=== PATIENT | male | born 1970 | race Caucasian/White ===

== ENCOUNTER 2023-03-20 14:18 | Emergency (ER) | payer OTHER ==
[~2023-03-20] VITALS: Ht 172.7 cm; Wt 59.1 kg
--- NOTE | 2023-03-20 15:13 | NUR ---
AIRWAY IS PATENT. RESPIRATIONS APPEAR EVEN AND UNLABORED. RADIAL PULSE IS 72.
[2023-03-20 15:17] VITALS: BP 118/80; PULSE 72; RESP 17; TEMP 97.5; O2SAT 98
== END 2023-03-20 22:48 | disposition home or self-care (01) ==
LOC: ER 14:19
DX: Z48.00 Encounter for change or removal of nonsurgical wound dressing (principal)
CPT/HCPCS: 99281

== ENCOUNTER 2023-10-20 11:45 | Emergency (ER) | payer BC, OTHER ==
[~2023-10-20] VITALS: Ht 172.7 cm; Wt 55.0 kg
[2023-10-20 12:14] VITALS: TEMP 97.8
[2023-10-20] MEDS: dexamethasone sod phosphate 10mg/ml inj IM STA (13:12)
[2023-10-20] MEDS: ketorolac trometh. 30mg/ml inj. IM ONE (13:14)
[2023-10-20] MEDS ORDERED: HYDR-3965 PO (13:19)
[2023-10-20] MEDS ORDERED: IBUP-1985 PO (13:19)
[2023-10-20 13:33] VITALS: BP 110/71; PULSE 63; RESP 16; O2SAT 99
== END 2023-10-20 13:38 | disposition home or self-care (01) ==
LOC: ER 11:45
DX: M54.50 Low back pain, unspecified (principal)
CPT/HCPCS: 72100; 96372; 99284; J1100; J1885

== ENCOUNTER 2024-03-31 15:32 | Outpatient (CLI) | payer BC ==
[~2024-03-31 15:32] MED LIST: IBUP-1985 PO
== END 2024-03-31 23:59 | disposition home or self-care (01) ==
LOC: MRI 15:32
PROVIDERS: ATTEND Nurse Practitioner Family
DX: M51.27 Other intervertebral disc displacement, lumbosacral region (principal); M48.07 Spinal stenosis, lumbosacral region; M47.817 Spondylosis without myelopathy or radiculopathy, lumbosacral region; M62.81 Muscle weakness (generalized)
CPT/HCPCS: 72148

== ENCOUNTER 2024-06-23 11:38 | Emergency (ER) | payer BC ==
[~2024-06-23] VITALS: Ht 172.7 cm; Wt 89.0 kg
[2024-06-23] MEDS ORDERED: HYDR-3965 PO (13:27)
[2024-06-23 13:33] VITALS: BP 128/82; PULSE 98; RESP 16; TEMP 98; O2SAT 97
== END 2024-06-23 13:34 | disposition home or self-care (01) ==
LOC: ER 11:39
DX: S90.32XA Contusion of left foot, initial encounter (principal); S90.31XA Contusion of right foot, initial encounter; X58.XXXA Exposure to other specified factors, initial encounter; Y93.23 Activity, snow (alpine) (downhill) skiing, snowboarding, sledding, tobogganing and snow tubing; Y92.89 Other specified places as the place of occurrence of the external cause; Y99.8 Other external cause status
CPT/HCPCS: 73630; 99283

== ENCOUNTER 2024-07-01 05:27 | Inpatient (IN) | payer BC ==
[~2024-07-01] VITALS: Ht 172.7 cm; Wt 53.6 kg
[~2024-07-01 05:27] MED LIST changes: +HYDR-3965 PO
[2024-07-01] MEDS ORDERED: magnesium sulf-water 2g/50mL 50 ML IV PRN (10:20)
[2024-07-01] MEDS ORDERED: acetaminophen 325mg tablet PO PRN ×2 (10:20)
[2024-07-01] MEDS ORDERED: potassium Cl 20 mEq SR tablet PO PRN ×2 (10:20)
[2024-07-01] MEDS ORDERED: magnesium sulf-water 4G/100mL 100 ML IV PRN (10:20)
[2024-07-01] MEDS ORDERED: HYDROcodone/acetaminophen 5mg/325mg tablet PO PRN (10:20)
[2024-07-01] MEDS ORDERED: potassium Cl 40MEQ/1/2NS 520ml 520 ML IV PRN (10:20)
[2024-07-01] MEDS ORDERED: magnesium Cl slow-release 64mg tablet PO PRN (10:20)
[2024-07-01] MEDS ORDERED: ondansetron/PF 4mg/2ml inj IV PRN (10:20)
[2024-07-01] MEDS ORDERED: HYDROcodone/acetaminophen 10/325mg tab PO PRN (10:20)
[2024-07-01] MEDS ORDERED: morphine 2 MG/ML inj. syringe IV PRN ×2 (10:20)
[2024-07-01 11:48] LABS: BASOPHILS % (AUTO) 0.5 % (0-1); EOSINOPHILS # (AUTO) 0.1 X10'3 (0-0.9); EOSINOPHILS % (AUTO) 1.5 % (0-6); HEMATOCRIT 42.4 % (42.0-52.0); HEMOGLOBIN 14.3 g/dl (14.0-17.9); LYMPHOCYTES # (AUTO) 0.9 X10'3 (1.1-4.8); LYMPHOCYTES % (AUTO) 12.5 % (21-51); MEAN CORPUSCULAR HEMOGLOBIN 31.1 PG (27.0-31.0); MEAN CORPUSCULAR HGB CONC 33.8 g/dL (33.0-36.5); MEAN CORPUSCULAR VOLUME 92.1 FL (78-98); MONOCYTES # (AUTO) 0.5 X10'3 (0-0.9); NEUTROPHILS % (AUTO) 79.5 % (42-75); PLATELET COUNT 396 X10'3 (140-440); RED BLOOD COUNT 4.61 X10'6 (4.70-6.10); RED CELL DISTRIBUTION WIDTH 14.1 % (11.5-14.5); WHITE BLOOD COUNT 7.5 X10'3 (4.5-11.0)
[2024-07-01 12:02] LABS: PROTHROMBIN TIME 10.5 SECONDS (9.0-12.0)
[2024-07-01 12:05] LABS: ALANINE AMINOTRANSFERASE 26 U/L (12-78); ALBUMIN/GLOBULIN RATIO 1.3 (1.1-1.5); ALKALINE PHOSPHATASE 99 IU/L (46-116); ANION GAP 7 (8-16); ASPARTATE AMINO TRANSFERASE 12 U/L (10-37); BILIRUBIN,TOTAL 0.2 MG/DL (0.1-1.0); BLOOD UREA NITROGEN 13 MG/DL (7-18); BUN/CREATININE RATIO 16.3 (10.0-20.0); CALCIUM 9.2 MG/DL (8.5-10.1); CHLORIDE 107 MMOL/L (99-107); GLUCOSE 100 MG/DL (70-104); POTASSIUM 3.7 MMOL/L (3.5-5.1); SODIUM 143 MMOL/L (135-145); TOTAL CARBON DIOXIDE 29.4 MMOL/L (24-32); TOTAL PROTEIN 7.1 G/DL (6.4-8.2); eCRCL 80 ML/MIN; eGFR > 90 ML/MIN
[2024-07-01] MEDS ORDERED: NO HOME MEDS (12:39)
[2024-07-01 18:00] VITALS: BP 113/69; PULSE 66; RESP 15; TEMP 98.4; O2SAT 98
[2024-07-01] MEDS: heparin, porcine 5000 units/ml vial SQ SCH (19:19)
[2024-07-01 22:00] VITALS: BP 107/66; PULSE 69; RESP 14; TEMP 98.2; O2SAT 98
[2024-07-02 06:00] VITALS: BP 138/79; PULSE 76; RESP 16; TEMP 98.4; O2SAT 97
[2024-07-02 06:20] LABS: BASOPHILS # (AUTO) 0.1 X10'3 (0-0.2); BASOPHILS % (AUTO) 0.8 % (0-1); EOSINOPHILS # (AUTO) 0.2 X10'3 (0-0.9); EOSINOPHILS % (AUTO) 3.6 % (0-6); HEMOGLOBIN 14.3 g/dl (14.0-17.9); LYMPHOCYTES # (AUTO) 1.2 X10'3 (1.1-4.8); LYMPHOCYTES % (AUTO) 16.8 % (21-51); MEAN CORPUSCULAR HEMOGLOBIN 31.1 PG (27.0-31.0); MEAN CORPUSCULAR VOLUME 91.5 FL (78-98); MEAN PLATELET VOLUME 7.1 FL (7.4-10.4); MONOCYTES # (AUTO) 0.5 X10'3 (0-0.9); NEUTROPHILS % (AUTO) 71.8 % (42-75); PLATELET COUNT 376 X10'3 (140-440); RED BLOOD COUNT 4.59 X10'6 (4.70-6.10); RED CELL DISTRIBUTION WIDTH 14.3 % (11.5-14.5); WHITE BLOOD COUNT 6.9 X10'3 (4.5-11.0)
[2024-07-02 06:43] LABS: ALBUMIN 3.6 G/DL (3.4-5.0); ANION GAP 6 (8-16); BLOOD UREA NITROGEN 18 MG/DL (7-18); BUN/CREATININE RATIO 22.8 (10.0-20.0); CALCIUM 8.8 MG/DL (8.5-10.1); CHLORIDE 107 MMOL/L (99-107); CREATININE 0.79 MG/DL (0.60-1.10); GLUCOSE 107 MG/DL (70-104); POTASSIUM 4.3 MMOL/L (3.5-5.1); SODIUM 141 MMOL/L (135-145); TOTAL CARBON DIOXIDE 27.6 MMOL/L (24-32); eCRCL 81 ML/MIN; eGFR > 90 ML/MIN
[2024-07-02 10:00] VITALS: BP 123/69; PULSE 54; RESP 16; TEMP 97.5; O2SAT 97
[2024-07-02] MEDS ORDERED: ACET-1008 PO (10:10)
[2024-07-02] MEDS ORDERED: PANT40TA54 PO (10:17)
[2024-07-02] MEDS ORDERED: IBUP-1985 PO (10:17)
== END 2024-07-02 11:35 | disposition home or self-care (01) | DRG 563 ==
LOC: EEVIPCON 05:28 → ER 05:28 → ED HOLD 10:25 → ORTHO 4S 15:45
PROVIDERS: ADMIT Internal Medicine; ATTEND Internal Medicine
DX: S92.014A Nondisplaced fracture of body of right calcaneus, initial encounter for closed fracture (principal); S92.015A Nondisplaced fracture of body of left calcaneus, initial encounter for closed fracture; G89.29 Other chronic pain; M54.9 Dorsalgia, unspecified; X58.XXXA Exposure to other specified factors, initial encounter; Y93.89 Activity, other specified; Y92.89 Other specified places as the place of occurrence of the external cause; Y99.8 Other external cause status
CPT/HCPCS: 36415; 73650; 73721; 80048; 80053; 85025; 85610; 87081; 99285; G0378; J1644

== ENCOUNTER → 2024-10-07 | Outpatient (CLI) | payer BC ==
[~2024-10-07] MED LIST changes: +ACET-1008 PO; -HYDR-3965 PO; +NO HOME MEDS; +PANT40TA54 PO
[2024-10-07 11:27] LABS: BASOPHILS % (AUTO) 0.4 % (0-1); EOSINOPHILS # (AUTO) 0.2 X10'3 (0-0.9); EOSINOPHILS % (AUTO) 2.2 % (0-6); HEMATOCRIT 40.7 % (42.0-52.0); LYMPHOCYTES # (AUTO) 1.3 X10'3 (1.1-4.8); LYMPHOCYTES % (AUTO) 14.5 % (21-51); MEAN CORPUSCULAR HEMOGLOBIN 31.3 PG (27.0-31.0); MEAN CORPUSCULAR HGB CONC 34.3 g/dL (33.0-36.5); MEAN PLATELET VOLUME 7.1 FL (7.4-10.4); MONOCYTES # (AUTO) 0.6 X10'3 (0-0.9); MONOCYTES % (AUTO) 6.7 % (2-12); NEUTROPHILS # (AUTO) 6.6 X10'3 (1.8-7.7); NEUTROPHILS % (AUTO) 76.2 % (42-75); PLATELET COUNT 361 X10'3 (140-440); RED BLOOD COUNT 4.47 X10'6 (4.70-6.10); RED CELL DISTRIBUTION WIDTH 14.3 % (11.5-14.5); WHITE BLOOD COUNT 8.7 X10'3 (4.5-11.0)
[2024-10-07 11:28] LABS: BILIRUBIN,URINE NEGATIVE (Neg); CLARITY,URINE CLEAR (Clear); COLOR,URINE YELLOW (Yellow); GLUCOSE, URINE NEGATIVE (Neg); KETONES,URINE NEGATIVE (Neg); LEUKOCYTE ESTERASE ,URINE NEGATIVE (Neg); NITRITES, URINE NEGATIVE (Neg); OCCULT BLOOD,URINE NEGATIVE (Neg); PROTEIN,URINE NEGATIVE (Neg); UROBILINOGEN,URINE 0.2 E.U/dL (0.2-1.0)
[2024-10-07 11:33] LABS: UA COLLECTION TYPE CLN CATCH MIDSTREAM
[2024-10-07 11:52] LABS: ALANINE AMINOTRANSFERASE 35 U/L (12-78); ALBUMIN 3.9 G/DL (3.4-5.0); ALBUMIN/GLOBULIN RATIO 1.3 (1.1-1.5); ALKALINE PHOSPHATASE 95 IU/L (46-116); ANION GAP 5 (8-16); ASPARTATE AMINO TRANSFERASE 22 U/L (10-37); BILIRUBIN,TOTAL 0.3 MG/DL (0.1-1.0); BLOOD UREA NITROGEN 14 MG/DL (7-18); BUN/CREATININE RATIO 17.9 (10.0-20.0); CALCIUM 8.8 MG/DL (8.5-10.1); CHLORIDE 105 MMOL/L (99-107); CHOL/HDL RATIO 3.1 (0.00-4.99); CHOLESTEROL 161 MG/DL (0-200); CREATININE 0.78 MG/DL (0.60-1.10); FREE T4 (FREE THYROXINE) 0.79 NG/DL (0.73-1.40); GLUCOSE 100 MG/DL (70-104); HDL CHOLESTEROL 52 MG/DL (35-60); LDL CHOLESTEROL 98 MG/DL (50-100); MAGNESIUM 1.9 MG/DL (1.5-2.4); POTASSIUM 4.3 MMOL/L (3.5-5.1); SODIUM 140 MMOL/L (135-145); THYROID STIMULATING HORMONE 1.42 ulU/ml (0.34-4.50); TOTAL CARBON DIOXIDE 29.7 MMOL/L (24-32); TOTAL PROTEIN 6.8 G/DL (6.4-8.2); TRIGLYCERIDES 75 MG/DL (20-135); eGFR > 90 ML/MIN
== END | disposition home or self-care (01) ==
LOC: LAB 10:40
PROVIDERS: ATTEND Nurse Practitioner Family
DX: Z00.01 Encounter for general adult medical examination with abnormal findings (principal); R25.2 Cramp and spasm; R63.4 Abnormal weight loss; R32 Unspecified urinary incontinence; Z13.29 Encounter for screening for other suspected endocrine disorder; R09.89 Other specified symptoms and signs involving the circulatory and respiratory systems
CPT/HCPCS: 36415; 80053; 80061; 81003; 83735; 84439; 84443; 85025

== ENCOUNTER 2025-01-27 14:29 | Emergency (ER) | payer BC ==
[~2025-01-27] VITALS: Ht 172.7 cm; Wt 55.5 kg
[~2025-01-27 14:29] MED LIST changes: -IBUP-1985 PO; +IBUP600T52 PO
[2025-01-27 14:32] VITALS: BP 116/82; PULSE 73; RESP 16; TEMP 96.8; O2SAT 98
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
--- NOTE | 2025-01-27 15:53 | VASCULAR REPORT ---
CLINICAL HISTORY: Pain. TECHNIQUE: Color and duplex doppler imagine of the right lower extremity veins was performed. Vessel compression if possible was also performed. COMPARISON: MR MRI LOWER EXTREMITY LEFT on DOS: 07/01/24, MR MRI LOWER EXTREMITY RIGHT on DOS: 07/01/24 FINDINGS: Right common femoral vein: Normal compressibility and flow. Right superficial femoral vein: Normal compressibility and flow. Right popliteal vein: Normal compressibility and flow. Proximal calf veins are normally compressible. IMPRESSION: NO SONOGRAPHIC EVIDENCE FOR DEEP VENOUS THROMBOSIS IN THE RIGHT LOWER EXTREMITY VEINS.
== END 2025-01-27 16:11 | disposition home or self-care (01) ==
LOC: ER 14:30
DX: M79.671 Pain in right foot (principal); Z79.899 Other long term (current) drug therapy; X58.XXXA Exposure to other specified factors, initial encounter; Y93.23 Activity, snow (alpine) (downhill) skiing, snowboarding, sledding, tobogganing and snow tubing; Y92.89 Other specified places as the place of occurrence of the external cause; Y99.8 Other external cause status
CPT/HCPCS: 93971; 99284

== ENCOUNTER 2025-03-30 09:35 | Outpatient (CLI) | payer BC ==
--- NOTE | 2025-03-30 13:46 | VASCULAR REPORT ---
[facility] Vascular Department [facility] [address] [place] [address] [email or web address] Name : JOAN NORIEGA Date : 03/30/2025 FESTING Birthdate : 1970 Accession# : [id number] Sex : M Age : 55Y Patent Attorney : Yeyo Aldridge BS, RVT Referring Dr. : RIA DOBBINS, Preliminary Report The above named patient was referred for a PHYSIOLOGIC ARTERIAL DOPPLER EVALUATION. The evaluation includes blood pressures, ankle brachial indices (DARA), and segmental Doppler waveform analysis at rest and post exercise when applicable. Toe brachial indices (TBI) taken when necessary. Patient OUT-PATIENT Enaation: Ankle to Brachial Index Indleations Calf tenderness Decreased DPA pulses per MD Pressures/Indices Right AB Left AB Brachial 108mmHg Brachial 106mmHg Ankle(PT) 114mmHg Ankle(PT) 118mmHg Ankle(DP) 122mmHg 1.13 Ankle(DP) 122mmHg 1.13 Impression: Right ankle-brachial index: 1.13 Left ankle-brachial index: 1.13
--- NOTE | 2025-03-30 18:54 | VASCULAR REPORT ---
BILATERAL LOWER EXTREMITY ARTERIAL DUPLEX ULTRASOUND STUDY: REASON FOR EXAM: Calf tenderness. Decreased dorsal pedal pulses bilaterally on exam. TECHNIQUE: The full lengths of the arterial segments were evaluated with color- flow Doppler ultrasound. Suspected abnormalities were evaluated with honeycutt scale ultrasound. Trimmer And Borer Machine Operator spectral Doppler waveforms, with velocity measurements were obtained. Spectral waveforms with velocity measurements were obtained 2 to 4 cm central to any areas of significant stenosis. Common femoral, superficial femoral, popliteal, posterior tibial, anterior tibial, and dorsal pedal arteries were evaluated. FINDINGS: Right: There is mild diffuse atherosclerotic plaque in the right lower extremity. The common femoral artery waveform is multiphasic with a brisk upstroke. The superficial femoral and popliteal arteries are patent with multiphasic waveforms. The posterior tibial, anterior tibial, and dorsalis pedis arteries are patent with multiphasic waveforms. Left: There is mild diffuse atherosclerotic plaque in the left lower extremity. The common femoral artery waveform is multiphasic with a brisk upstroke. The superficial femoral and popliteal arteries are patent with multiphasic waveforms. The posterior tibial, anterior tibial, and dorsalis pedis arteries are patent with multiphasic waveforms. IMPRESSION: No hemodynamically significant stenosis.
== END 2025-03-30 23:59 | disposition home or self-care (01) ==
LOC: RAD 09:35
PROVIDERS: ATTEND Pediatrics Sports Medicine
DX: S92.002A Unspecified fracture of left calcaneus, initial encounter for closed fracture (principal); I70.203 Unspecified atherosclerosis of native arteries of extremities, bilateral legs; M25.472 Effusion, left ankle; M25.471 Effusion, right ankle; S92.001A Unspecified fracture of right calcaneus, initial encounter for closed fracture; G57.32 Lesion of lateral popliteal nerve, left lower limb; X58.XXXA Exposure to other specified factors, initial encounter; Y93.89 Activity, other specified; Y92.89 Other specified places as the place of occurrence of the external cause; Y99.8 Other external cause status
CPT/HCPCS: 93922; 93925

== ENCOUNTER 2025-04-01 14:05 | Outpatient (CLI) | payer BC ==
--- NOTE | 2025-04-02 19:11 | RADIOLOGY REPORT ---
[facility] - [facility] EXAMINATION: MR MRI LOWER EXTREMITY RIGHT TECHNIQUE: MRI of the right calf and pop was performed without contrast. HISTORY: RT CALF PAIN/RT ANKLE PAIN COMPARISON: MR MRI LOWER EXTREMITY RIGHT on DOS: 04/01/25, MR MRI LOWER EXTREMITY LEFT on DOS: 07/01/24, MR MRI LOWER EXTREMITY RIGHT on DOS: 07/01/24, MR MRI LUMBAR SPINE on DOS: 03/31/24, DI LUMBAR SPINE LIMITED on DOS: 10/20/23 FINDINGS: No fracture or malalignment. No concerning marrow signal abnormality. Calf muscle signal appears normal with no evidence for tear or myopathy. No focal fluid collections. Subcutaneous soft tissues are clear. Neurovascular bundle appears unremarkable. Visualized portions of the Achilles appear normal. IMPRESSION: Unremarkable MRI of the right calf and pop.
--- NOTE | 2025-04-02 21:14 | RADIOLOGY REPORT ---
[facility]: [facility] MRI LOWER EXTREMITY RIGHT TECHNIQUE: MRI of the right ankle was performed without contrast. HISTORY: RIGHT ANKLE SWELLING COMPARISON: MR MRI LOWER EXTREMITY RIGHT on DOS: 04/01/25, MR MRI LOWER EXTREMITY LEFT on DOS: 07/01/24, MR MRI LOWER EXTREMITY RIGHT on DOS: 07/01/24, MR MRI LUMBAR SPINE on DOS: 03/31/24, DI LUMBAR SPINE LIMITED on DOS: 10/20/23 FINDINGS: No fracture or malalignment. Tibiofibular syndesmotic ligaments are intact. ATFL, PT FL, and calcaneofibular ligaments are intact. Flexor extensor tendons and peroneal tendons are intact with no tear. Minimally thickened peroneus longus tendon at the level of the ankle suggesting mild tendinopathy. Mild generalized cartilage thinning at the tibiotalar and subtalar joints. More moderate degenerative changes throughout the midfoot with joint space narrowing and osteophytes. No plantar fasciitis. No significant joint effusion. Achilles tendon is unremarkable. Soft tissues are clear. IMPRESSION: Degenerative changes of the tibiotalar joint, subtalar joint, and throughout the midfoot. Mild peroneal tendinopathy. Otherwise no significant abnormality.
== END 2025-04-01 23:59 | disposition home or self-care (01) ==
LOC: MRI02 14:05
PROVIDERS: ATTEND Nurse Practitioner Family
DX: M19.071 Primary osteoarthritis, right ankle and foot (principal); M25.471 Effusion, right ankle; M76.71 Peroneal tendinitis, right leg
CPT/HCPCS: 73718; 73721